=== PATIENT | female | born 1995 | race Caucasian/White ===

== ENCOUNTER 2016-02-22 16:48 | Emergency (ER) | payer OTHER ==
[~2016-02-22] VITALS: Ht 170.2 cm; Wt 61.6 kg
[2016-02-22 17:16] VITALS: Ht 170.2 cm; Wt 61.6 kg
[2016-02-22] MEDS ORDERED: BCPILLS PO (17:57)
[2016-02-22] MEDS ORDERED: LEVO1IUD VAGRING (17:57)
[2016-02-22] MEDS ORDERED: ONDANSETRON INJ 2 MG/ML 2 ML VIAL IV STA (18:25)
[2016-02-22] MEDS ORDERED: SODIUM CHLORIDE 0.9% 1000ML 1,000 ML IV ONE ×2 (18:30)
[2016-02-22 18:57] LABS: BASO % 0.2 %; BASO ABS # 0.01 K/uL (0-0.2); COMPLETE YES; EOS % 0.2 %; HEMATOCRIT 42.5 % (37-47); IG% 0.2 %; LYMPH % 9.1 %; LYMPH ABS # 0.57 K/uL (1.2-3.4); MEAN CELL VOLUME 81.1 fL (80-100); MEAN CORPUSCULAR HEMOGLOBIN 28.2 pg (25-34); MEAN CORPUSCULAR HGB CONC 34.8 g/dl (32-36); MEAN PLATELET VOLUME 9.6 fL (7.4-10.4); MONO % 4.2 %; NEUT % 86.1 %; PLATELET COUNT 203 K/uL (130-400); RED BLOOD COUNT 5.24 M/uL (4.2-5.4); WHITE BLOOD COUNT 6.24 K/uL (4.8-10.8)
[2016-02-22 19:01] LABS: URINE APPEARANCE CLEAR (CLEAR); URINE BILIRUBIN NEG (NEG); URINE COLOR DK YELLOW; URINE EPITHELIAL CELL AUTO >30 /lpf (0-5); URINE NITRITE NEG (NEG); URINE SPECIFIC GRAVITY 1.032 (1.000-1.030); UROBILINOGEN NEG (NEG); ZZUR CULT IF INDIC CLEAN CATCH YES
[2016-02-22 19:08] LABS: MANUAL MICROSCOPIC REQUIRED? NO; REVIEW REQ? YES
[2016-02-22 19:15] LABS: BUN/CREATININE RATIO 14.8 (10-20); CALCIUM 8.7 mg/dl (8.5-10.1); CREATININE 0.98 mg/dl (0.60-1.20); MAGNESIUM 1.9 mg/dl (1.8-2.4); POTASSIUM 3.8 mmol/L (3.5-5.1)
[2016-02-22 19:18] LABS: ALB/GLOB RATIO 1.1 (0.9-2); URINE MUCUS PRESENT (NONE PRSENT)
[2016-02-22 19:43] VITALS: TEMP 37.8
[2016-02-22] MEDS ORDERED: KETOROLAC TROMETHAMINE 30 MG/ML VIAL IV STA (20:21)
[2016-02-22] MEDS ORDERED: ONDA4TAB10 SL (21:09)
[2016-02-22] MEDS ORDERED: ONDANSETRON HOME PACK 4MG OD TAB PO ONE (21:15)
[2016-02-22 21:48] VITALS: BP 102/55; PULSE 77; O2SAT 96
--- NOTE | 2016-02-23 20:33 | EMERGENCY ROOM VISIT NOTE ---
History First contact with patient: 18:09 Chief Complaint: VOMITING Stated Complaint: VOMITING,FEVER,STOMACH AND BACK PAIN Nursing Triage Summary: Vomiting since 5am, havent been able to keep anything down. States shes had a fever and has not been able to take meds. Middle to lower left back pain. Denies urinary symptoms. Diarrhea the past couple days. History of Present Illness The patient is a 20 year old female who presents to the Emergency Room with complaints of nausea, vomiting, and upset stomach for the past 15 hours. The patient reportedly has had intermittent diarrhea for the past few days. The patient does not have known exposure to disease. No recent travel history. She does not report a high-grade fever. She is not tolerating fluids, prompting her to come to the emergency department for evaluation. She denies chance of as she has an IUD. She rates her discomfort a 5/10. Review of Systems More than 10 systems were reviewed and otherwise negative with the exception of history of present illness. Past Medical/Surgical History No chronic medical disease Family History No pertinent family history Social History Smoking Status: Never Smoker Occupation Status: student Current/Historical Medications Scheduled Levonorgestrel (Iud) (Sandra), 1 DOSE VAGRING F2KLERY Ondasetron Odt (Zofran Odt), 4 MG SL Q6H Allergies Coded Allergies: No Known Allergies (Unverified , 02/22/16) Physical Exam Vital Signs Date Time Temp Pulse Resp B/P Pulse Ox O2 Delivery O2 Flow Rate FiO2 02/22/16 21:48 77 102/55 96 02/22/16 19:43 37.8 69 111/46 100 Room Air 02/22/16 17:16 37.4 130 18 102/70 99 Room Air Pain Rating (0-10): 0 Physical Exam VITALS: Vitals are noted on the nurse's note and reviewed by myself. Vital signs stable. GENERAL: Well-developed, well-nourished, female, who is in no acute distress and resting comfortably. Patient is cooperative with the examination. HEAD: Normocephalic atraumatic. MOUTH: Mucous membranes moist. Tonsils are not enlarged. Pharynx without erythema, blood, or exudate. Uvula midline. Airway patent. NECK: Supple without nuchal rigidity. No lymphadenopathy. No thyromegaly. Cervical spine is nontender. HEART: Regular rate and rhythm without murmurs gallops or rubs. LUNGS: Clear to auscultation bilaterally without wheezes, rales or rhonchi. No retractions or accessory muscle use. ABDOMEN: Positive normal bowel sounds x 4. Soft, nontender, without masses or organomegaly. No guarding or rebound tenderness. MUSCULOSKELETAL: No muscle atrophy, erythema, or edema noted. Full range of motion without joint tenderness in all extremities. No tenting of the skin. Medical Decision & Procedures Laboratory Results 02/22/16 18:30 Red Blood Count 5.24, Mean Corpuscular Volume 81.1, Mean Corpuscular Hemoglobin 28.2, Mean Corpuscular Hemoglobin Concent 34.8, Mean Platelet Volume 9.6, Neutrophils (%) (Auto) 86.1, Lymphocytes (%) (Auto) 9.1, Monocytes (%) (Auto) 4.2, Eosinophils (%) (Auto) 0.2, Basophils (%) (Auto) 0.2, Neutrophils # (Auto) 5.38, Lymphocytes # (Auto) 0.57, Monocytes # (Auto) 0.26, Eosinophils # (Auto) 0.01, Basophils # (Auto) 0.01 02/22/16 18:30 Test 02/22/16 18:30 White Blood Count 6.24 K/uL (4.8-10.8) Red Blood Count 5.24 M/uL (4.2-5.4) Hemoglobin 14.8 g/dL (12.0-16.0) Hematocrit 42.5 % (37-47) Mean Corpuscular Volume 81.1 fL (80-100) Mean Corpuscular Hemoglobin 28.2 pg (25-34) Mean Corpuscular Hemoglobin Concent 34.8 g/dl (32-36) Platelet Count 203 K/uL (130-400) Mean Platelet Volume 9.6 fL (7.4-10.4) Neutrophils (%) (Auto) 86.1 % Lymphocytes (%) (Auto) 9.1 % Monocytes (%) (Auto) 4.2 % Eosinophils (%) (Auto) 0.2 % Basophils (%) (Auto) 0.2 % Neutrophils # (Auto) 5.38 K/uL (1.4-6.5) Lymphocytes # (Auto) 0.57 K/uL (1.2-3.4) Monocytes # (Auto) 0.26 K/uL (0.11-0.59) Eosinophils # (Auto) 0.01 K/uL (0-0.5) Basophils # (Auto) 0.01 K/uL (0-0.2) RDW Standard Deviation 37.6 fL (36.4-46.3) RDW Coefficient of Variation 12.6 % (11.5-14.5) Immature Granulocyte % (Auto) 0.2 % Immature Granulocyte # (Auto) 0.01 K/uL (0.00-0.02) Urine Color DK YELLOW Urine Appearance CLEAR (CLEAR) Urine pH 5.0 (4.5-7.5) Urine Specific [place] 1.032 (1.000-1.030) Urine Protein NEG (NEG) Urine Glucose (UA) NEG (NEG) Urine Ketones 2+ (NEG) Urine Occult Blood NEG (NEG) Urine Nitrite NEG (NEG) Urine Bilirubin NEG (NEG) Urine Urobilinogen NEG (NEG) Urine Leukocyte Esterase TRACE (NEG) Urine WBC (Auto) 1-5 /hpf (0-5) Urine RBC (Auto) 0-4 /hpf (0-4) Urine Hyaline Casts (Auto) /lpf (0-5) Urine Epithelial Cells (Auto) >30 /lpf (0-5) Urine Bacteria (Auto) 2+ (NEG) Urine Mucus PRESENT (NONE PRSENT) Urine Test NEG (NEG) Anion Gap 9.0 mmol/L (3-11) Est Creatinine Clear Calc Drug Dose 89.0 ml/min Estimated GFR () 96.2 Estimated GFR (Non- 83.0 BUN/Creatinine Ratio 14.8 (10-20) Calcium Level 8.7 mg/dl (8.5-10.1) Magnesium Level 1.9 mg/dl (1.8-2.4) Total Bilirubin 1.0 mg/dl (0.2-1) Aspartate Amino Transf (AST/SGOT) 9 U/L (15-37) Alanine Aminotransferase (ALT/SGPT) 18 U/L (12-78) Alkaline Phosphatase 52 U/L (45-117) Total Protein 7.3 gm/dl (6.4-8.2) Albumin 3.8 gm/dl (3.4-5.0) Globulin 3.5 gm/dl (2.5-4.0) Albumin/Globulin Ratio 1.1 (0.9-2) Lipase 170 U/L (73-393) Medications Administered Medications (Trade) Dose Ordered Sig/Kade Route Start Time Stop Time Status Last Admin Dose Admin Sodium Chloride 1,000 ml @ 999 mls/hr Q1H1M ONCE IV 02/22/16 18:30 02/22/16 19:35 DC 02/22/16 18:30 999 MLS/HR Sodium Chloride (Nss 1000ml) 1,000 ml @ 999 mls/hr Q1H1M ONCE IV 02/22/16 18:30 02/22/16 19:35 DC 02/22/16 18:30 999 MLS/HR Ondansetron HCl (Zofran Inj) 4 mg NOW STAT IV 02/22/16 18:25 02/22/16 18:26 DC 02/22/16 18:25 4 MG Ketorolac Tromethamine (Toradol Inj) 30 mg NOW STAT IV 02/22/16 20:21 02/22/16 20:22 DC 02/22/16 20:39 30 MG ED Course Physical exam and history were performed. Nursing notes and EMR were reviewed. Patient appears to have nausea and vomiting for greater than the past half day. She does not appear toxic on exam, and does not present with what appears to be a surgical abdomen. IV access was established and labs were obtained. The patient was hydrated with 2 L normal saline. She was given IV Zofran and IV Toradol for her discomfort. The patient blood work is as above and was reviewed. She does not have a significantly elevated white blood cell count, anemia, bandemia, or gross electrolyte imbalance. Lipase and transaminases are nondiagnostic. Her urine is with ketones, which was expected. She appears to have some bacteria, but also greater than 30 epithelial cells in her urine, and this may represent contamination. She does not have UTI symptoms, and I we will await culture before treating this. On reevaluation the patient felt much better with IV hydration and antiemetics. Clinically she did not have any worsening abdominal pain. I suspect her symptoms are likely related to a viral infection or possibly foodborne illness. The patient will be given a short course of Zofran for home use. She is to follow-up with her primary care physician with any ongoing or persisting problems. She was invited back to the ER anytime, and was pleased with plan of care. The chart was completed utilizing [employer] Speech Voice Recognition Software. Grammatical errors, random word insertions, pronoun errors, and incomplete sentences are an occasional consequence of this system due to software limitations, ambient noise, and hardware issues. Any formal questions or concerns about the content, text, or information contained within the body of this dictation should be directly addressed to the provider for clarification. . Medical Decision Differential diagnosis: Etiologies such as gastroenteritis, food borne illness, infections, appendicitis , diverticulitis, inflammatory bowel disease, obstruction, GI bleed, biliary pathology, as well as others were entertained. Impression Primary Impression: Nausea and vomiting Departure Information Dispostion Home / Self-Care Condition GOOD Prescriptions Ondasetron Odt (ZOFRAN ODT) 4 Mg Tab 4 MG SL Q6H for Nausea, #12 TAB Prov: Lamine Skinner PA-C 02/22/16 Forms HOME CARE DOCUMENTATION FORM, IMPORTANT VISIT INFORMATION Patient Instructions My [facility] Additional Instructions You were seen and evaluated today on an emergency basis only. This is not a substitute for, or an effort to provide, complete comprehensive medical care. It is not possible to recognize and treat all injuries or illnesses in a single emergency department visit. For this reason it is recommended that you followup with your primary care physician next week for ongoing care and evaluation. Drink plenty of fluids and remain well hydrated. Slowly add simple foods such as bread, rice, applesauce, bananas to your diet over the next 12-24 hours. Zofran 1 tablet every 6 hrs as needed for nausea. You are welcome to return to the emergency department anytime with new, worsening, or concerning symptoms.
== END 2016-02-22 21:49 | disposition home or self-care (01) ==
LOC: C.EDB 16:49 → C.EDC 21:49
DX: R11.2 Nausea with vomiting, unspecified (principal)

== ENCOUNTER → 2016-05-16 | Outpatient (CLI) | payer OTHER ==
[~2016-05-16] MED LIST: LEVO1IUD VAGRING; ONDA4TAB10 SL
[2016-05-21 01:20] LABS: CHLAMYDIA TRACH RNA*** NOT DETECTED (NOT DETECTED); GC (NEIS GONORRHOEAE)RNA** NOT DETECTED (NOT DETECTED); TRICHOMONAS VAGINALIS RNA** NOT DETECTED (NOT DETECTED)
== END | disposition home or self-care (01) ==
LOC: C.LABSPEC 18:00
PROVIDERS: ATTEND Obstetrics & Gynecology
DX: Z11.3 Encounter for screening for infections with a predominantly sexual mode of transmission (principal)

== ENCOUNTER 2017-07-02 14:27 | Emergency (ER) | payer OTHER ==
[~2017-07-02] VITALS: Ht 170.2 cm; Wt 70.0 kg
[~2017-07-02 14:27] MED LIST changes: -ONDA4TAB10 SL
[2017-07-02 14:31] VITALS: TEMP 36.7; Ht 170.2 cm; Wt 70.0 kg
[2017-07-02] MEDS ORDERED: SODIUM CHLORIDE 0.9% 1000ML 1,000 ML IV STA (14:49)
[2017-07-02] MEDS ORDERED: ALBUT/IPRATROP 3MG/0.5MG NEB 3 ML VIAL INH STA (14:49)
[2017-07-02] MEDS ORDERED: MoRPHine SULFATE 4 MG/ML 1 ML CARP\\VIAL IV STA (14:49)
[2017-07-02] MEDS ORDERED: ONDANSETRON INJ 2 MG/ML 2 ML VIAL IV STA (14:49)
[2017-07-02] MEDS ORDERED: MELA1TAB5 PO (15:00)
[2017-07-02 15:35] LABS: BASO % 0.2 %; BASO ABS # 0.01 K/uL (0-0.2); EOS % 0.9 %; EOS ABS # 0.04 K/uL (0-0.5); HEMOGLOBIN 15.2 g/dL (12.0-16.0); LYMPH % 40.9 %; LYMPH ABS # 1.81 K/uL (1.2-3.4); MEAN CELL VOLUME 83.5 fL (80-100); MEAN CORPUSCULAR HEMOGLOBIN 28.2 pg (25-34); MEAN CORPUSCULAR HGB CONC 33.8 g/dl (32-36); MEAN PLATELET VOLUME 9.4 fL (7.4-10.4); MONO % 8.8 %; MONO ABS # 0.39 K/uL (0.11-0.59); NEUT % 49.2 %; NEUT ABS # 2.18 K/uL (1.4-6.5); PLATELET COUNT 149 K/uL (130-400); WHITE BLOOD COUNT 4.43 K/uL (4.8-10.8)
[2017-07-02 15:45] LABS: INFLUENZA B ANTIGEN POS for Influ B (NEG)
--- NOTE | 2017-07-02 15:46 | EMERGENCY ROOM VISIT NOTE ---
ED Visit Note First contact with patient: 14:37 CHIEF COMPLAINT: Right eye pain, redness, swelling, fevers HISTORY OF PRESENTING ILLNESS: This is a 21-year-old female with past medical history of asthma, who presents to the emergency department with complaint of right eye pain, redness, and swelling that started this morning. She states the pain is constant, worse with moving the eyes side to side, currently rates 9 /10. She denies any visual changes or vision loss. She has had a lot of watery discharge from the eye, but she denies any purulent drainage or matting around the eyelashes. She states that she started with URI symptoms about 5 days ago, with body aches and fevers, runny nose and congestion. A few days ago she developed a cough, and states that she has been having some associated shortness of breath and wheezing with this. She reports persistent fevers for the past several days, she states this morning it was 103.7. She did take Tylenol around 5 AM and naproxen around 11:30 AM, which has been helping with her pain and fevers. She wears glasses and contacts, she does not currently have contacts in. Patient states that she saw her eye doctor around 8 AM, and they gave her antibiotic eyedrops, which she used this morning, and her eye swelling seemed to get much worse after this. She states that her pain and swelling got progressively worse so she saw her PCP this afternoon, who sent her to the emergency department to rule out orbital cellulitis. She denies any injury to the eye. She reports a recent sick contact with strep throat, but states that she was tested for this and it was negative, and she currently denies a sore throat. She denies any headaches, neck pain or stiffness, ear pain, chest pain, dizziness or syncope, back pain, abdominal pain, nausea or vomiting, diarrhea, bloody or black stools, urinary symptoms, abnormal vaginal discharge or bleeding, or unusual rash. She is up-to-date on immunizations. REVIEW OF SYSTEMS: A complete 10 point review of systems was reviewed with the patient with pertinent positives and negatives as per history of present illness. All else were negative. PAST MEDICAL HISTORY: Asthma SOCIAL HISTORY: Lives at home. She denies tobacco use. She is a college student. ALLERGIES: No known allergies. PHYSICAL EXAM: CONSTITUTIONAL: Pleasant and cooperative. No acute distress, but obviously uncomfortable and in pain. Well-hydrated, well appearing and well nourished. HEENT: Normocephalic, atraumatic. Pupils equal, round and reactive to light, EOMI, but has pain with lateral movement of the right eye. There is moderate periorbital swelling, the right conjunctiva is erythematous and injected, with large amounts of watery discharge from the eye. Vision grossly intact to both eyes. Peripheral vision intact. TMs normal. Pharynx without erythema, edema, or exudates. Airway patent. Moist mucous membranes. NECK: Supple, full active range of motion without discomfort. No cervical adenopathy. RESPIRATORY: Coarse rhonchi in the left lung espinal with some wheezes, diminished in the base. Right lung espinal are slightly diminished, but clear. No stridor. Equal expansion bilaterally. CARDIOVASCULAR: Regular rate and rhythm with no murmurs, rubs or gallops. Normal peripheral perfusion. No edema. GASTROINTESTINAL: Soft, nontender, nondistended. No palpable masses or HSM. Bowel sounds present in all quadrants. MUSCULOSKELETAL: Full range of motion of all joints without discomfort. INTEGUMENTARY: No rash or other significant dermatologic conditions noted. NEUROLOGIC: Alert and oriented X 4 with normal affect. Cranial nerves II-XII grossly intact, no facial droop. No focal neurologic deficits noted. 5/5 strength in all four extremities, sensation intact to light touch in all four extremities. ED COURSE AND MEDICAL DECISION MAKING: CC: Patient presenting with complaint of right eye pain, redness, swelling, with fevers DIFFERENTIAL DIAGNOSIS: Includes, but not limited to conjunctivitis, periorbital cellulitis versus orbital cellulitis, facial cellulitis, pneumonia, bronchitis, asthma exacerbation, viral URI, influenza, dehydration, among others. INTERPRETATION OF LABS: No leukocytosis, no anemia, no significant electrolyte abnormalities, normal renal function, normal liver enzymes. Mildly elevated inflammatory markers. UA negative, negative urine . Positive for influenza B. IMAGING: TWO VIEW CHEST CLINICAL HISTORY: Fever. Cough. FINDINGS: PA and lateral chest radiographs are obtained. No prior studies are available for comparison at the time of dictation. The cardiomediastinal silhouette is unremarkable. The lungs and pleural spaces are clear. There is no pneumothorax. The bony thorax appears intact. IMPRESSION: No active disease in the chest. ----- ORBITS/SELLA/TEMP WITH HISTORY: 21 years-old Female right eye swelling, redness, pain, eval orbital cellulitis acute right-sided pain and swelling COMPARISON: None available TECHNIQUE: Multiple axial CT images of the orbits were obtained following the intravenous administration of 94 mL Optiray 320 IV contrast. A dose lowering technique was used consistent with the principals of OBEY. FINDINGS: Mild preseptal edema on the right. There is mild asymmetric enlargement and heterogeneous enhancement of the right lacrimal gland compared to the left. The bilateral globes appear intact and unremarkable with normal appearance of the anterior and posterior chambers on the right. No post septal, intraconal or extraconal inflammatory changes. The extraocular musculature appears to be within normal limits. No evidence of scleritis. Moderate enlargement of the adenoid tonsils results in mild narrowing of the airway. Carotid vasculature appears to be normal. Image intracranial structures are within normal limits. Mastoid air cells and middle ear cavities are clear. Moderate mucosal thickening of the nasal turbinates and ethmoid air cells with mild mucosal thickening about the maxillary sinuses. IMPRESSION: 1. Mild preseptal subcutaneous edema on the right with mild asymmetric enlargement and heterogeneous enhancement of the right lacrimal gland suggesting dacryoadenitis. No post septal inflammatory changes or drainable fluid collections. 2. Anterior and posterior chambers on the right appear normal. 3. Paranasal sinus disease as above. 4. Moderate enlargement of the adenoid tonsils results in mild narrowing of the nasopharynx. MEDICATION RECONCILIATION: I attest that I have personally reviewed the patient 's current medication list. INITIAL VITAL SIGNS REVIEW: I reviewed the patient's initial vital signs and interpret them as follows: T: Afebrile; BP: Normotensive; HR: Within normal limits; RR: Within normal limits; Pulse Ox: Within normal limits on room air. Blood pressure screening: The patient was found to have normal blood pressure on screening and does not require follow-up for repeat blood pressure check. SUMMARY: Patient was evaluated at bedside, history and physical exam performed. Patient is alert and oriented, in no acute distress but does appear uncomfortable and in pain, resting in the stretcher. There is moderate swelling the right periorbital area, with tenderness to palpation over the right orbit, and increased pain with lateral movements of the eye. Vision is grossly intact. Patient states that she was sent here by her PCP specifically to evaluate for orbital cellulitis. Patient has notable rhonchi with some wheezing in the left lung espinal, concerning for possible pneumonia in the setting of fevers. Orders were placed at bedside for labs, UA and urine , blood cultures 2, IV fluid bolus for hydration, IV morphine for pain, chest x-ray, CT orbits with IV contrast to evaluate for orbital cellulitis. DuoNeb ordered for cough and wheezing. Patient discussed with Dr. Samuel, who agrees with my assessment and plan. Labs and imaging reviewed as above, no evidence of orbital cellulitis. Positive for influenza B. Patient states not much improvement with the morphine. IV Toradol ordered. Patient states that her cough and SOB improved with the DuoNeb, lungs are more clear now. Albuterol inhaler with spacer provided to the patient and she was instructed in its use. Patient reassessed multiple times throughout ED stay, she has remained stable, and her pain is improved with the Toradol. Her vision remains stable. I believe the patient's eye symptoms are most likely related to a viral conjunctivitis. I also feel that she may have had an allergic reaction to the antibiotic eyedrops prescribed by her eye doctor, since her swelling symptoms got much worse after use, and I did recommend that she not take these until she gets in touch with her eye doctor tomorrow. Patient was updated on all results and plan for discharge, she was encouraged to follow closely with her eye doctor and PCP. Patient was also given strict return precautions should her symptoms worsen, she verbalized understanding. Patient was discharged home in stable condition and ambulatory. Current/Historical Medications Scheduled Levonorgestrel (Iud) (Sandra), 1 DOSE VAGRING [id number] Scheduled PRN Melatonin ( Melatonin), 3 MG PO HS PRN for Sleep Allergies Coded Allergies: No Known Allergies (Unverified , 07/02/17) Vital Signs Date Time Temp Pulse Resp B/P (MAP) Pulse Ox O2 Delivery O2 Flow Rate FiO2 07/02/17 17:35 98 20 126/68 100 07/02/17 16:33 90 15 108/76 100 Room Air 07/02/17 15:13 Room Air 07/02/17 14:31 36.7 75 16 125/83 95 Room Air Laboratory Results 07/02/17 15:20 Red Blood Count 5.39, Mean Corpuscular Volume 83.5, Mean Corpuscular Hemoglobin 28.2, Mean Corpuscular Hemoglobin Concent 33.8, Mean Platelet Volume 9.4, Neutrophils (%) (Auto) 49.2, Lymphocytes (%) (Auto) 40.9, Monocytes (%) (Auto) 8.8, Eosinophils (%) (Auto) 0.9, Basophils (%) (Auto) 0.2, Neutrophils # (Auto) 2.18, Lymphocytes # (Auto) 1.81, Monocytes # (Auto) 0.39, Eosinophils # (Auto) 0.04, Basophils # (Auto) 0.01 07/02/17 15:20 Test 07/02/17 14:50 07/02/17 15:10 07/02/17 15:20 Urine Color YELLOW Urine Appearance CLEAR (CLEAR) Urine pH 6.5 (4.5-7.5) Urine Specific [place] 1.024 (1.000-1.030) Urine Protein NEG (NEG) Urine Glucose (UA) NEG (NEG) Urine Ketones NEG (NEG) Urine Occult Blood NEG (NEG) Urine Nitrite NEG (NEG) Urine Bilirubin NEG (NEG) Urine Urobilinogen NEG (NEG) Urine Leukocyte Esterase NEG (NEG) Urine Test NEG (NEG) Influenza Type A Antigen Neg for Influ A (NEG) Influenza Type B Antigen POS for Influ B (NEG) White Blood Count 4.43 K/uL (4.8-10.8) Red Blood Count 5.39 M/uL (4.2-5.4) Hemoglobin 15.2 g/dL (12.0-16.0) Hematocrit 45.0 % (37-47) Mean Corpuscular Volume 83.5 fL (80-100) Mean Corpuscular Hemoglobin 28.2 pg (25-34) Mean Corpuscular Hemoglobin Concent 33.8 g/dl (32-36) Platelet Count 149 K/uL (130-400) Mean Platelet Volume 9.4 fL (7.4-10.4) Neutrophils (%) (Auto) 49.2 % Lymphocytes (%) (Auto) 40.9 % Monocytes (%) (Auto) 8.8 % Eosinophils (%) (Auto) 0.9 % Basophils (%) (Auto) 0.2 % Neutrophils # (Auto) 2.18 K/uL (1.4-6.5) Lymphocytes # (Auto) 1.81 K/uL (1.2-3.4) Monocytes # (Auto) 0.39 K/uL (0.11-0.59) Eosinophils # (Auto) 0.04 K/uL (0-0.5) Basophils # (Auto) 0.01 K/uL (0-0.2) RDW Standard Deviation 39.0 fL (36.4-46.3) RDW Coefficient of Variation 13.0 % (11.5-14.5) Immature Granulocyte % (Auto) 0.0 % Immature Granulocyte # (Auto) 0.00 K/uL (0.00-0.02) Erythrocyte Sedimentation Rate 22 mm/hr (0-21) Anion Gap 8.0 mmol/L (3-11) Est Creatinine Clear Calc Drug Dose 91.1 ml/min Estimated GFR () 99.2 Estimated GFR (Non- 85.6 BUN/Creatinine Ratio 12.0 (10-20) Calcium Level 9.0 mg/dl (8.5-10.1) Total Bilirubin 0.4 mg/dl (0.2-1) Direct Bilirubin < 0.1 mg/dl (0-0.2) Aspartate Amino Transf (AST/SGOT) 20 U/L (15-37) Alanine Aminotransferase (ALT/SGPT) 19 U/L (12-78) Alkaline Phosphatase 51 U/L (45-117) C-Reactive Protein 1.38 mg/dl (0-0.29) Total Protein 8.5 gm/dl (6.4-8.2) Albumin 4.0 gm/dl (3.4-5.0) Medications Administered Medications (Trade) Dose Ordered Sig/Kade Route Start Time Stop Time Status Last Admin Dose Admin Morphine Sulfate (MoRPHine SULFATE INJ) 4 mg NOW STAT IV 07/02/17 14:49 07/02/17 14:55 DC 07/02/17 15:24 4 MG Sodium Chloride 1,000 ml @ 999 mls/hr Q1H1M STAT IV 07/02/17 14:49 07/02/17 15:49 DC 07/02/17 15:24 999 MLS/HR Ondansetron HCl (Zofran Inj) 4 mg NOW STAT IV 07/02/17 14:49 07/02/17 14:56 DC 07/02/17 15:24 4 MG Albuterol/ Ipratropium (Duoneb) 3 ml NOW STAT INH 07/02/17 14:49 07/02/17 14:56 DC 07/02/17 15:23 3 ML Ketorolac Tromethamine (Toradol Inj) 15 mg NOW STAT IV 07/02/17 16:17 07/02/17 16:18 DC 07/02/17 16:37 15 MG Albuterol (Ventolin Hfa Inhaler) 2 puffs NOW ONCE INH 07/02/17 16:45 07/02/17 16:46 DC 07/02/17 17:26 2 PUFFS Departure Information Impression Primary Impression: Viral conjunctivitis of right eye Additional Impressions: Influenza B Acute bronchitis Dispostion Home / Self-Care Condition GOOD Referrals Angélica Smith D.OSamira (PCP) Patient Instructions ED Bronchitis Asthmatic, ED Conjunctivitis Nonspecific, ED Flu, [facility] Additional Instructions You have been treated in the Emergency Department today for your right eye pain , fevers, and cough. CT imaging of the orbits is negative for orbital cellulitis. You most likely have a viral conjunctivitis of the right eye. Test results today are POSITIVE for influenza type B. This is most likely the cause of your symptoms of cough and fevers. Influenza is a type of virus that should run its course and symptoms should be improved after 7-10 days, but may last up to 14 days. For fevers and body aches/headaches, you may take the following over-the- counter medications: - Extra strength Tylenol (500 mg) 1-2 tablets every 6-8 hours as needed. Do not take more than 6 tablets (3000 mg) in 24 hours. - Ibuprofen (200 mg) 3 tablets every 6-8 hours as needed. Do not take more than 2400 mg in 24 hours. - For best results, you may alternate between the Tylenol and the ibuprofen every 3-4 hours for severe body aches and fevers. It is ESSENTIAL that you maintain adequate hydration with oral fluids! Some suggestions include: - Water is the IDEAL replacement for lost fluids. You should initially sip at the water to help facilitate increased intestinal absorption rate and to decrease the possibility of nausea/vomiting. - Carbohydrate/Electrolyte-Containing Drinks (i.e. Gatorade, Powerade, Pedialyte). All of these are good choices, but it is important to remember that all of these drinks contain a high concentration of sugar. - Popsicles, ice chips, and fruit juices are all other options. - My FAVORITE dehydration remedy is to mix a 1:1 solution of bottled Gatorade with bottled water. This dilution allows for a palatable flavor with added benefit of a reduction in the amount of sugar consumption. For your eye pain and swelling, you can apply warm, moist compresses to the eye throughout the day for comfort. You may use eye ointment such as Lacri-Lube or saline eyedrops to the eye throughout the day to help alleviate any irritation. Your symptoms should improve in the next 1-2 weeks. Use the albuterol inhaler with the spacer, 2 puffs every 4 hours as needed for cough, wheezing, or shortness of breath. You should also use the inhaler before bed to help alleviate coughing that may keep you awake at night. Please follow-up with your Eye Doctor tomorrow and with your Primary Care Provider in 2-3 days for reevaluation, or sooner if your symptoms are worsening. Please return to the emergency department immediately for any worsening symptoms of vision changes or sudden vision loss, pus drainage from the eye, severe worsening pain, severe headache, neck pain or stiffness, worsening difficulty breathing or inability to catch your breath, chest pain, coughing up blood, severe dizziness or passing out, confusion, persistent high fevers, or any other concerns. Work Instructions Return To Work: 3 days Problem Qualifiers Additional Impressions: Acute bronchitis Bronchitis organism: other organism Qualified Codes: J20.8 - Acute bronchitis due to other specified organisms
[2017-07-02 15:58] LABS: ALKALINE PHOSPHATASE 51 U/L (45-117); ALT/SGPT 19 U/L (12-78); AST/SGOT 20 U/L (15-37); BLOOD UREA NITROGEN 11 mg/dl (7-18); CARBON DIOXIDE 25 mmol/L (21-32); CREATININE 0.95 mg/dl (0.60-1.20); GLUCOSE 87 mg/dl (70-99); POTASSIUM 3.7 mmol/L (3.5-5.1); SODIUM 137 mmol/L (136-145); TOTAL PROTEIN 8.5 gm/dl (6.4-8.2)
[2017-07-02] MEDS ORDERED: OPTIRAY 320 IV PRN (16:00)
--- NOTE | 2017-07-02 16:02 | DIAGNOSTIC IMAGING REPORT ---
TWO VIEW CHEST CLINICAL HISTORY: Fever. Sepsis. FINDINGS: PA and lateral chest radiographs are obtained. No prior studies are available for comparison at the time of dictation. The cardiomediastinal silhouette is unremarkable. The lungs and pleural spaces are clear. There is no pneumothorax. The bony thorax appears intact. IMPRESSION: No active disease in the chest. Electronically signed by: Rudy Pagan M.D. 07/02/2017 4:00 PM Dictated Date/Time: 07/02/2017 4:00 PM
--- NOTE | 2017-07-02 16:09 | DIAGNOSTIC IMAGING REPORT ---
ORBITS/SELLA/TEMP WITH HISTORY: 21 years-old Female right eye swelling, redness, pain, eval orbital cellulitis acute right-sided pain and swelling COMPARISON: None available TECHNIQUE: Multiple axial CT images of the orbits were obtained following the intravenous administration of 94 mL Optiray 320 IV contrast. A dose lowering technique was used consistent with the principals of OBEY. FINDINGS: Mild preseptal edema on the right. There is mild asymmetric enlargement and heterogeneous enhancement of the right lacrimal gland compared to the left. The bilateral globes appear intact and unremarkable with normal appearance of the anterior and posterior chambers on the right. No post septal, intraconal or extraconal inflammatory changes. The extraocular musculature appears to be within normal limits. No evidence of scleritis. Moderate enlargement of the adenoid tonsils results in mild narrowing of the airway. Carotid vasculature appears to be normal. Image intracranial structures are within normal limits. Mastoid air cells and middle ear cavities are clear. Moderate mucosal thickening of the nasal turbinates and ethmoid air cells with mild mucosal thickening about the maxillary sinuses. IMPRESSION: 1. Mild preseptal subcutaneous edema on the right with mild asymmetric enlargement and heterogeneous enhancement of the right lacrimal gland suggesting dacryoadenitis. No post septal inflammatory changes or drainable fluid collections. 2. Anterior and posterior chambers on the right appear normal. 3. Paranasal sinus disease as above. 4. Moderate enlargement of the adenoid tonsils results in mild narrowing of the nasopharynx. The above report was generated using voice recognition software. It may contain grammatical, syntax or spelling errors. Electronically signed by: Jeffy Pendleton M.D. 07/02/2017 4:07 PM Dictated Date/Time: 07/02/2017 4:00 PM
[2017-07-02] MEDS ORDERED: KETOROLAC TROMETHAMINE 30 MG/ML VIAL IV STA (16:17)
[2017-07-02] MEDS ORDERED: ALBUTEROL HFA 8 GM INHALER INH ONE (16:45)
[2017-07-02 17:35] VITALS: BP 126/68; PULSE 98; O2SAT 100
== END 2017-07-02 17:38 | disposition home or self-care (01) ==
LOC: C.EDB 14:29 → C.EDC 17:38
DX: B30.9 Viral conjunctivitis, unspecified (principal); J11.1 Influenza due to unidentified influenza virus with other respiratory manifestations; J45.909 Unspecified asthma, uncomplicated

== ENCOUNTER → 2017-09-19 | Outpatient (CLI) | payer OTHER ==
[~2017-09-19] MED LIST changes: +MELA1TAB5 PO
== END | disposition home or self-care (01) ==
LOC: C.PAPS 17:42
PROVIDERS: ATTEND Obstetrics & Gynecology
DX: Z01.419 Encounter for gynecological examination (general) (routine) without abnormal findings (principal)

== ENCOUNTER → 2017-09-19 | Outpatient (CLI) | payer OTHER | END | disposition home or self-care (01) | LOC: C.LABSPEC 17:15 | PROVIDERS: ATTEND Obstetrics & Gynecology | DX: Z11.3 Encounter for screening for infections with a predominantly sexual mode of transmission (principal) ==